=== PATIENT | male | born 1980 | race Caucasian/White ===

== ENCOUNTER 2021-06-02 19:38 | Emergency (ER) | payer MEDICAID ==
[~2021-06-02] VITALS: Ht 177.8 cm; Wt 85.1 kg
[2021-06-02 21:02] LABS: CLARITY,URINE SLIGHTLY CLOUDY (Clear); COLOR,URINE YELLOW (Yellow); GLUCOSE, URINE NEGATIVE (Neg); KETONES,URINE NEGATIVE (Neg); LEUKOCYTE ESTERASE ,URINE NEGATIVE (Neg); NITRITES, URINE NEGATIVE (Neg); OCCULT BLOOD,URINE NEGATIVE (Neg); PROTEIN,URINE NEGATIVE (Neg); UROBILINOGEN,URINE 0.2 E.U/dL (0.2-1.0)
[2021-06-02 21:07] LABS: UA COLLECTION TYPE CLN CATCH MIDSTREAM
[2021-06-02 21:08] LABS: AMORPHOUS PHOSPHATES 2+; BACTERIA,URINE FEW /HPF (Neg); RBC,URINE NONE SEEN /HPF (0-2); SQUAMOUS EPITHELIAL CELL,UR FEW /LPF (FEW); WBC,URINE NONE SEEN /HPF (0-4)
[2021-06-02 21:44] LABS: BASOPHILS # (AUTO) 0.1 X10'3 (0-0.2); BASOPHILS % (AUTO) 0.5 % (0-1); EOSINOPHILS # (AUTO) 0.1 X10'3 (0-0.9); EOSINOPHILS % (AUTO) 1.3 % (0-6); HEMATOCRIT 44.5 % (42.0-52.0); HEMOGLOBIN 15.3 g/dl (14.0-17.9); LYMPHOCYTES # (AUTO) 2.9 X10'3 (1.1-4.8); LYMPHOCYTES % (AUTO) 26.5 % (21-51); MEAN CORPUSCULAR HGB CONC 34.4 g/dL (33.0-36.5); MEAN PLATELET VOLUME 9.2 FL (7.4-10.4); MONOCYTES % (AUTO) 8.7 % (2-12); NEUTROPHILS # (AUTO) 6.9 X10'3 (1.8-7.7); PLATELET COUNT 267 X10'3 (140-440); RED CELL DISTRIBUTION WIDTH 13.4 % (11.5-14.5)
[2021-06-02 21:58] LABS: ALANINE AMINOTRANSFERASE 39 U/L (12-78); ALBUMIN 4.1 G/DL (3.4-5.0); ALBUMIN/GLOBULIN RATIO 1.2 (1.1-1.5); ALKALINE PHOSPHATASE 88 IU/L (46-116); ANION GAP 8 (8-16); ASPARTATE AMINO TRANSFERASE 20 U/L (10-37); BILIRUBIN,TOTAL 0.2 MG/DL (0.1-1.0); BLOOD UREA NITROGEN 7 MG/DL (7-18); BUN/CREATININE RATIO 5.5 (5.4-32.0); CALCIUM 9.3 MG/DL (8.5-10.1); CHLORIDE 108 MMOL/L (99-107); CREATININE 1.28 MG/DL (0.60-1.10); GLUCOSE 103 MG/DL (70-104); LIPASE < 50 U/L (73-393); POTASSIUM 3.7 MMOL/L (3.5-5.1); SODIUM 146 MMOL/L (135-145); TOTAL CARBON DIOXIDE 29.6 MMOL/L (24-32); TOTAL PROTEIN 7.6 G/DL (6.4-8.2); eGFR 62 ML/MIN
[2021-06-03] MEDS ORDERED: normal saline 1000ML IV soln IVB ONE ×2 (00:25)
[2021-06-03] MEDS ORDERED: sucralfate 1gm/10ml UD suspension PO ONE (00:25)
[2021-06-03] MEDS ORDERED: pantoprazole 40 MG vial IV ONE (00:25)
[2021-06-03] MEDS ORDERED: ondansetron/PF 4mg/2ml inj IV ONE (00:25)
[2021-06-03] MEDS ORDERED: sucralfate 1gm/10ml UD suspension PO SCH (00:25)
[2021-06-03] MEDS ORDERED: SUCR1ORA12 PO (00:32)
[2021-06-03] MEDS ORDERED: PANT-47 PO (00:32)
[2021-06-03] MEDS ORDERED: ONDA8TAB13 PO (00:32)
[2021-06-03 02:15] VITALS: BP 158/75
== END 2021-06-03 02:17 | disposition home or self-care (01) ==
LOC: ER 19:39
DX: R10.13 Epigastric pain (principal); K92.2 Gastrointestinal hemorrhage, unspecified; G89.29 Other chronic pain; M54.9 Dorsalgia, unspecified; F17.200 Nicotine dependence, unspecified, uncomplicated; Z72.0 Tobacco use
CPT/HCPCS: 36415; 71046; 80053; 81001; 83690; 85025; 96361; 96374; 96375; 99284; C9113; J2405; J7030